=== PATIENT | female | born 1980 | race American Indian/Alaskan Native ===

== ENCOUNTER 2021-08-08 09:41 | Emergency (ER) | payer OTHER ==
[2021-08-08 09:51] VITALS: BP 112/67
--- NOTE | 2021-08-08 10:38 | XRay Report ---
CHEST PA AND LATERAL VIEWS INDICATION: chest pain. COMPARISON: None. FINDINGS: Support devices: None. Heart: Within normal limits. Lungs/Pleura: No acute pulmonary or pleural findings. IMPRESSION: 1. No acute findings. Signer Name: Reji Ha MD Signed: 08/08/2021 10:33 AM Workstation Name: [id number]
[2021-08-08] MEDS ORDERED: CYCLOBENZAPRINE 10 MG TAB PO ONE (18:29)
[2021-08-08] MEDS ORDERED: oxyCODONE /ACETAMINOPHEN 5-325MG TAB PO ONE (18:29)
[2021-08-08] MEDS ORDERED: KETOROLAC 10 MG TAB PO ONE (18:29)
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
== END 2021-08-08 20:37 | disposition home or self-care (01) ==
LOC: ED 09:41
DX: R07.89 Other chest pain (principal); M54.2 Cervicalgia; Z90.49 Acquired absence of other specified parts of digestive tract; Z79.899 Other long term (current) drug therapy; V87.7XXA Person injured in collision between other specified motor vehicles (traffic), initial encounter; Y93.89 Activity, other specified; Y92.488 Other paved roadways as the place of occurrence of the external cause; Y99.8 Other external cause status
CPT/HCPCS: 71046; 99283